=== PATIENT | male | born 1950 | race Caucasian/White ===

== ENCOUNTER → 2021-10-21 | Outpatient (CLI) | payer OTHER | LOC: SJCVC 10:47 | PROVIDERS: ATTEND Internal Medicine Cardiovascular Disease | DX: R94.31 Abnormal electrocardiogram [ECG] [EKG] (principal); I10 Essential (primary) hypertension; I48.91 Unspecified atrial fibrillation; E78.00 Pure hypercholesterolemia, unspecified; E78.5 Hyperlipidemia, unspecified; I25.10 Atherosclerotic heart disease of native coronary artery without angina pectoris; G47.30 Sleep apnea, unspecified; Z88.8 Allergy status to other drugs, medicaments and biological substances; Z87.891 Personal history of nicotine dependence ==

== ENCOUNTER → 2021-10-31 | Outpatient (CLI) | payer OTHER ==
[~2021-10-31] MED LIST: ADULT LOW DOSE81 MG PO; ASA81BEC; EFFIENT10 MG PO; TOPROL XL50 MG; XARELTO20 MG
== END ==
LOC: SJCVCIMAG 07:14
PROVIDERS: ATTEND Internal Medicine Cardiovascular Disease
DX: I34.0 Nonrheumatic mitral (valve) insufficiency (principal); I25.9 Chronic ischemic heart disease, unspecified; I49.3 Ventricular premature depolarization; R53.83 Other fatigue; R06.00 Dyspnea, unspecified; I25.10 Atherosclerotic heart disease of native coronary artery without angina pectoris; R07.9 Chest pain, unspecified; I48.91 Unspecified atrial fibrillation; I10 Essential (primary) hypertension; E78.00 Pure hypercholesterolemia, unspecified; G47.00 Insomnia, unspecified; E78.5 Hyperlipidemia, unspecified; Z87.891 Personal history of nicotine dependence; Z79.82 Long term (current) use of aspirin; Z79.899 Other long term (current) drug therapy; Z88.8 Allergy status to other drugs, medicaments and biological substances

== ENCOUNTER 2021-11-04 12:22 | Observation (INO) | payer OTHER ==
[2021-11-04] VITALS (10 sets, daily range): BP systolic 102–170; BP diastolic 77–102
[~2021-11-04] VITALS: Ht 182.9 cm; Wt 117.9 kg
[2021-11-04] MEDS ORDERED: ASA81BEC (13:17)
[2021-11-04] MEDS ORDERED: XARELTO20 MG (13:18)
[2021-11-04] MEDS ORDERED: TOPROL XL50 MG (13:19)
--- NOTE | 2021-11-04 16:35 | CATHLAB ---
[facility] [place] [address] INVASIVE PROCEDURE REPORT Name: ERNA FAIRCHILD Room #: 209-P [facility] [place] Asif#: [id number] Admission: 11/04/21 Attend Phys: Ricco Young MD Discharge: Date of : 54 Report #: [id number] THIS REPORT FOR: cc: Jose A Villanueva MD, Gary A. MD Park, Jin S. MD ~ APPROVED REPORT Study performed: 11/04/2021 14:26:07 Patient Details Patient Status: Out-Patient Room #: The patient is a 71 year-old male Event Personnel Ricco Young Landscape Crew Leader, Romain Mathews RN RN, Olesya Fairchild RTR ScrubMelissa Ja'net RTR Monitor Procedures Performed Art Access - R femoral artery* Left Heart Cath w/or w/o Coronaries [id number] [facility] JUANC[address]LOS Place w/wo Plasty Single LAD 204882 94911 Initial Mod Sed Same Phys/QHP Gr5y 223659 97321 Mod Sed Same Phys/QHP Ea 833286 Indication Atrial fibrillation, Dyspnea, Unstable angina , CardiomyopathyPositive stress test, Chest pain Risk Factors HypercholesterolemiaPhysical Activity, Coronary Artery DiseaseHypertension Previous Procedures/Diagnoses Previous PCI Procedure Narrative The patient was brought electively to the Cardiac Catheterization Laboratory and was prepped and draped in a sterile manner. The Right Groin^ was infiltrated with 1% Lidocaine subcutaneous anesthesia. A PINNACLE 4FR Sheath #[id number] sheath was inserted into the RFA^. Coronary angiography was performed using coronary diagnostic catheters. The right coronary system was accessed and visualized with a JR4 catheter. The left coronary system was accessed and visualized with a JL4 catheter. Closure device was deployed with a Fr MYNXGRIP [facility] [place] [address] [place] [address] INVASIVE PROCEDURE REPORT Name: ERNA FAIRCHILD Room #: 209-P [facility] IN [facility].#: [id number] Admission: 11/04/21 Attend Phys: Ricco Young MD Discharge: Date of : 54 Report #: [id number] 6/7F #[id number]. The patient tolerated the procedure well and there were no complications associated with the procedure. There was no hematoma. Intraoperative Conscious Sedation Sedation start time: 14:30 Case end Time: Fentanyl 50 mcg Versed 1 mg Fluoro Time: 8.90 minutes Dose: DAP 14453.40 cGycm2 3038 mGy Contrast Type and Amount: Omnipaque 150 ml Coronary Angiography The patient's coronary anatomy is right dominant. Diagnostic Cath Left Main The left main artery is a large-caliber vessel with mild disease distally. LAD The LAD is a moderate-sized caliber vessel, tapers down to a small to moderate-sized caliber in the mid and distal segments. There is a severe stenosis in the proximal segment, greater than 95%. There is mild to moderate diffuse disease in the midsegment, 30 to 40%. Diagonal 1 This is a small caliber vessel, with no flow-limiting lesions. Diagonal 2 This is a small caliber vessel, with no flow-limiting lesions. Circumflex There is a stent in the proximal segment of the left circumflex artery with severe restenosis, 80%. There lesions are at the proximal end of the stent and in the mid segment of the stent. OM1 This is a small to moderate-sized caliber vessel, patent with no flow-limiting lesions. OM2 There is a moderate-sized caliber vessel, with a severe stenosis in the proximal segment, 70%. Right Coronary The RCA is a dominant vessel with mild diffuse disease in the midsegment, 30%. R PDA This is a moderate-sized caliber vessel, patent with no flow-limiting lesions. RPLV This is a moderate-sized caliber vessel, patent with no flow-limiting lesions. Left Ventriculography Left Ventriculography was not performed. Ejection Fraction was 50-55% based off patient's Nuclear Cardiac Stress Test. [address] [address] INVASIVE PROCEDURE REPORT Name: ERNA FAIRCHILD Room #: 209-P [facility] IN M.R.#: [id number] Admission: 11/04/21 Attend Phys: Ricco Young MD Discharge: Date of : 54 Report #: [id number] Hemodynamics The aortic pressure is 151/89 mmHg with a mean of 111 mmHg. PCI Technique Lesion Anticoagulation was achieved with Angiomax. Percutaneous coronary intervention was performed on the proximal left anterior descending artery segment. The lesion stenosis prior to intervention was 95% with JULITA 3 flow. A VISTA 6FR XB 3.5 #[id number] Guide Catheter was used to engage the LAD ostium. A Luge Wire .014 x 182CM #[id number] Interventional Guidewire was used to cross the lesion. BALLOON DILATION A Balloon catheter Euphora RX 2.25 x 15 #[id number] was inserted and inflated up to 6.00atm for 6seconds. Additional Inflation: 8.00atm for 8seconds. Additional Inflation: 8.00atm for 12seconds. STENT DEPLOYMENT A stent RESOLUTE LAN RX 2.75 X 18 #[id number] was inserted and inflated up to 14.00atm for 21seconds. POST STENT DEPLOYMENT BALLOON DILATION A Balloon catheter Euphora NC RX 3.0 x 12 #[id number] was inserted and inflated up to 16.00atm for 15seconds. Additional Inflation: 16.00atm for 12seconds. Final angiography reveals 0 % stenosis with JULITA 3 flow. Conclusion 1. PCI performed with balloon angioplasty and placement of a drug-eluting stent into the severe proximal LAD stenosis. 2. Severe restenosis in the left circumflex stent, recommend staged PCI involving laser atherectomy. 3. The RCA is a dominant vessel, with mild disease. 4. Lownormal LV systolic function. 5. Recommend antiplatelet therapy and guideline directed medical therapy. <ELECTRONICALLY SIGNED> By: Ricco Young MD 11/04/21 1634 1634 1634 Ricco Young MD /INF
[2021-11-04] MEDS ORDERED: ADULT LOW DOSE81 MG PO (16:36)
[2021-11-04] MEDS ORDERED: EFFIENT10 MG PO (16:36)
--- NOTE | 2021-11-04 16:54 | NUR ---
Received pt to room 209 post cardiac cath around 1345. Pt is A&O x4, on RA, Afib on the monitor. Admission assessment performed & as documented. Forms signed & posted in chart. Pt on bedrest until 183. Rt grn site w/ mynx dressing which is C/D/I, no hematoma. Fall education performed & low fall precautions in place. Pt reports he cannot have dairy or gluten, diet adjusted to reflect. Call light within reach.
[2021-11-05 03:17] LABS: HEMATOCRIT 41.6 % (42.0-52.0); HEMOGLOBIN 14.4 gm/dL (14.0-18.0); MCH 30.5 pg (26.0-34.0); MCHC 34.5 g/dL (28.0-37.0); MCV 88.2 fL (80.0-100.0); RBC 4.72 mil/uL (4.50-6.00); RDW 13.9 % (10.5-14.5); WBC 7.4 thou/uL (4.0-11.0)
[2021-11-05 04:08] LABS: ALBUMIN 3.3 g/dL (3.4-5.0); CALCIUM 8.1 mg/dL (8.5-10.1); POTASSIUM 3.8 mmol/L (3.5-5.1); TOTAL BILIRUBIN 0.6 mg/dL (0.2-1.0); TOTAL PROTEIN 6.2 g/dL (6.4-8.2)
[2021-11-05 04:45] VITALS: BP 110/61
--- NOTE | 2021-11-05 04:57 | NUR ---
PATIENT AAOX3. R GROIN SITE CDI. NO SWELLING OR BRUISING NOTED. DENIES PAIN OR NEEDS. HAD DIFFICULTY SLEEPING DUE TO THE AMOUNT OF NOISE OUTSIDE OF HIS ROOM. PATIENT REMAINS AFIB ON THE MONITOR. WHEN HE SLEEPS HR DROPS TO THE LOW 40'S BUT DOES NOT SUSTAIN. ALL VSS. IS AMBULATING WITH NO ISSUES. ALL SAFETY PRECAUTIONS ARE IN PLACE. WILL CONTINUE TO MONITOR FOR CHANGES IN STATUS.
[2021-11-05 07:00] VITALS: BP 126/78
--- NOTE | 2021-11-05 07:45 | EKG ---
[address] [address] ELECTROCARDIOGRAM REPORT Name: ERNA FAIRCHILD Room #: 209-P [facility] M.R.#: [id number] Admission: 11/04/21 Attend Phys: Ricco Young MD Discharge: Date of : 54 Report #: [id number] [facility] Test Date: 2021-11-04 Test Time: 17:26:23 Pat Name: ERNA FAIRCHILD Department: Room: 209 P Gender: M Video Machines Mechanic: REI : 1950 Requested By: Ricco Young Order Number: [id number] MD: Kyle Bryant Measurements Intervals [place] Rate: 55 P: SD: QRS: 62 QRSD: 110 T: 61 QT: 382 QTc: 366 Interpretive Statements Atrial fibrillation Poor R wave progression No previous ECG available for comparison Electronically Signed On 11-05-2021 7:44:53 DIRECTOR OF RETENTION by Kyle Bryant [email or web address] <ELECTRONICALLY SIGNED> By: Kyle Bryant MD, [facility] 11/05/21 0744 1726 1726 Kyle Bryant MD, FACC /EPI
--- NOTE | 2021-11-05 07:53 | EKG ---
[address] [address] ELECTROCARDIOGRAM REPORT Name: ERNA FAIRCHILD Room #: 209-P [facility] M.R.#: [id number] Admission: 11/04/21 Attend Phys: Ricco Young MD Discharge: Date of : 54 Report #: [id number] [facility] Test Date: 2021-11-05 Test Time: 07:11:41 Pat Name: ERNA FAIRCHILD Department: Room: 209 P Gender: M Glue Mill Operator: BRIGITTE : 1950 Requested By: Ricco Young Order Number: [id number] MD: Kyle Bryant Measurements Intervals [place] Rate: 51 P: DC: QRS: 76 QRSD: 102 T: 85 QT: 396 QTc: 365 Interpretive Statements Atrial fibrillation Nonspecific T abnormalities, anterior leads Compared to ECG 11/04/2021 17:26:23 T-wave abnormality now present Electronically Signed On 11-05-2021 7:53:40 MANAGER SCIENTIFIC by Kyle Bryant [email or web address] <ELECTRONICALLY SIGNED> By: Kyle Bryant MD, [facility] 11/05/21 0753 0711 0 Kyle Bryant MD, FACC /EPI
[2021-11-05 10:22] VITALS: BP 126/78
--- NOTE | 2021-11-05 10:49 | NUR ---
ASSUMED CARE OF PT THIS MORNING. PT A&OX4 AND COMMUNICATING NEEDS TO STAFF APPROPRIATELY. PT DENIED PAIN THROUGHOUT THE MORNING AND WAS FREQUENTLY REASSESSED. PT AMBULATING AND VOIDING INDEPENDENTLY. NO SKIN ISSUES. PT WILL DC TODAY. TELE MONITOR AND IV REMOVED. DC INSTRUCTIONS REVIEWED WITH PT. QUESTIONS INVITED AND ANSWERED. PT WAS SENT HOME TO THE CARE OF FAMILY WITH THEIR BELONGINGS AND DC INSTRUCTIONS.
== END 2021-11-05 12:22 | disposition home or self-care (01) ==
LOC: CATH 12:22 → 2N 15:55
PROVIDERS: ADMIT Internal Medicine Cardiovascular Disease; ATTEND Internal Medicine Cardiovascular Disease
DX: I25.110 Atherosclerotic heart disease of native coronary artery with unstable angina pectoris (principal); I48.91 Unspecified atrial fibrillation; I10 Essential (primary) hypertension; E78.5 Hyperlipidemia, unspecified; E78.00 Pure hypercholesterolemia, unspecified; J98.4 Other disorders of lung; I42.9 Cardiomyopathy, unspecified; E66.9 Obesity, unspecified; G47.33 Obstructive sleep apnea (adult) (pediatric); Z88.8 Allergy status to other drugs, medicaments and biological substances; Z98.890 Other specified postprocedural states

== ENCOUNTER → 2021-11-14 | Outpatient (CLI) | payer OTHER | LOC: SJCVC 12:52 | PROVIDERS: ATTEND Internal Medicine Cardiovascular Disease | DX: R94.31 Abnormal electrocardiogram [ECG] [EKG] (principal); I48.91 Unspecified atrial fibrillation; E78.00 Pure hypercholesterolemia, unspecified; I10 Essential (primary) hypertension; I25.10 Atherosclerotic heart disease of native coronary artery without angina pectoris; E78.5 Hyperlipidemia, unspecified; Z79.82 Long term (current) use of aspirin; Z79.899 Other long term (current) drug therapy; Z88.8 Allergy status to other drugs, medicaments and biological substances; Z87.891 Personal history of nicotine dependence ==

== ENCOUNTER 2021-11-25 07:13 | Observation (INO) | payer OTHER ==
[~2021-11-25] VITALS: Ht 182.9 cm; Wt 130.0 kg
[2021-11-25] MEDS ORDERED: PLAVIX 75 MG TA75 MG PO (07:42)
[2021-11-25 07:45] VITALS: BP 147/84
[2021-11-25 08:13] LABS: HEMATOCRIT 45.6 % (42.0-52.0); HEMOGLOBIN 15.7 gm/dL (14.0-18.0); MCH 30.2 pg (26.0-34.0); MCHC 34.4 g/dL (28.0-37.0); MCV 87.6 fL (80.0-100.0); RBC 5.21 mil/uL (4.50-6.00); RDW 13.8 % (10.5-14.5); WBC 7.2 thou/uL (4.0-11.0)
[2021-11-25 08:31] LABS: CALCIUM 9.2 mg/dL (8.5-10.1); POTASSIUM 3.8 mmol/L (3.5-5.1)
--- NOTE | 2021-11-25 12:17 | EKG ---
[address] [address] [facility] [place] [address] ELECTROCARDIOGRAM REPORT Name: ERNA FAIRCHILD [id number] Admission: 11/25/21 Attend Phys: Ricco Young MD Discharge: Date of : 54 Report #: [id number] [facility] Test Date: 2021-11-25 Test Time: 10:54:58 Pat Name: ERNA FAIRCHILD Department: Room: Gender: M Marketing Automation Analyst: : 1950 Requested By: Ricco Young Order Number: [id number] MD: Km Wood Measurements Intervals [place] Rate: 59 P: TN: QRS: 66 QRSD: 92 T: 47 QT: 384 QTc: 381 Interpretive Statements Atrial fibrillation Borderline low voltage, extremity leads Nonspecific ST-T wave changes Compared to ECG 11/05/2021 07:11:41 T-wave abnormality no longer present Electronically Signed On 11-25-2021 12:16:58 CONSTRUCTION SITE MANAGER by Km Wood [email or web address] <ELECTRONICALLY SIGNED> By: Km Wood MD 11/25/21 1216 1054 1054 Km Wood MD /MITESH
--- NOTE | 2021-11-25 12:36 | CATHLAB ---
[facility] [place] [address] INVASIVE PROCEDURE REPORT Name: ERNA FAIRCHILD Room #: REG BIMAL Jordan.#: [id number] Admission: 11/25/21 Attend Phys: Ricco Young MD Discharge: Date of : 54 Report #: [id number] THIS REPORT FOR: cc: Jose A Villanueva MD, Gary A. MD Park, Jin S. MD ~ APPROVED REPORT Study performed: 11/25/2021 08:28:30 Patient Details Patient Status: Out-Patient Room #: The patient is a 71 year-old male Event Personnel Ricco Young Retail Associate, Olesya Fairchild RTR Monitor, Cathy Hartmann Wright, Sarah RN RN, Obi Yeh RN sizing machine and drier operator Performed Art Access - R femoral artery* JUANCARLOS Place w/wo Plasty Single CIRC 828861 Atherectomy w/wo Plasty Sgl CIRC 4603587 ATHSINGLE Coronary Angiography Only 7387860 CORANG Hemostasis w/ Mynx 47398 Initial Mod Sed Same Phys/QHP Gr5y 158448 05491 Mod Sed Same Phys/QHP Ea 802966 Indication Atrial fibrillation, Dyspnea, Positive stress test, Chest pain, The patient had a recent cardiac catheterization, found to have two-vessel disease. He underwent PCI with stent placement to the proximal LAD stenosis. He now returns for staged PCI involving severe restenotic lesion in the proximal/mid left circumflex and a severe de leonard lesion in OM 2. Risk Factors HypercholesterolemiaPhysical Activity, Coronary Artery DiseaseHypertension Previous Procedures/Diagnoses Previous PCI Procedure Narrative The Right Groin^ was infiltrated with 1% Lidocaine subcutaneous anesthesia. A PINNACLE 6FR Sheath #[id number] sheath was inserted into [facility] [address] [place] [address] INVASIVE PROCEDURE REPORT Name: ERNA FAIRCHILD Room #: REG CL Naif#: [id number] Admission: 11/25/21 Attend Phys: Ricco Young MD Discharge: Date of : 54 Report #: [id number] the RFA^. Coronary angiography was performed using coronary diagnostic catheters. The left coronary system was accessed and visualized with a XB 3.5 catheter. Closure device was deployed with a Fr MYNXGRIP 6/7F #[id number]. The patient tolerated the procedure well and there were no complications associated with the procedure. There was no hematoma. Intraoperative Conscious Sedation Sedation start time: 8:43 Case end Time: 10:16 Fentanyl 150 mcg Versed 3 mg Fluoro Time: 28.50 minutes Dose: DAP 70038.90 cGycm2 4971 mGy Contrast Type and Amount: Omnipaque 225 ml Coronary Angiography The patient's coronary anatomy is right dominant. Hemodynamics The aortic pressure is 135/77 mmHg with a mean of 98 mmHg. PCI Technique Lesion Percutaneous coronary intervention was performed on the proximal/mid left circumflex artery segment. The lesion stenosis prior to intervention was 90% with JULITA 3 flow. A VISTA 6FR XB 3.5 #549492 Guide Catheter was used to engage the ostium. A Luge Wire .014 x 182CM #[id number] Interventional Guidewire was used to cross the lesion. BALLOON DILATION A Balloon catheter Euphora NC RX 2.5 x 15 #[id number] was inserted and inflated up to 16.00atm for 18seconds. Additional Inflation: 18.00atm for 20seconds. Additional Inflation: 10.00atm for 21seconds. A EUPHORA NC 3.0 x 15 was inserted and inflated up to 18 denise for 29 seconds. Additional Inflation: 18 denise for 29 seconds. Additional inflation: 18 denise for 30 seconds. STENT DEPLOYMENT A drug-eluting stent RESOLUTE LAN RX 3.0 X 18 #[id number] was inserted and inflated up to 18.00atm for 20seconds. POST STENT DEPLOYMENT BALLOON DILATION A Balloon catheter TREK NC RX 2.5 X 8 #[id number] was inserted and inflated up to 18atm for 21seconds. An NC EUPHORA 3.0 x 12 was inserted and inflated up to 14 denise for 9 seconds. Additional [facility] [address] [place] [address] INVASIVE PROCEDURE REPORT Name: ERNA FAIRCHILD Room #: REG CL Laya#: [id number] Admission: 11/25/21 Attend Phys: Ricco Young MD Discharge: Date of : 54 Report #: [id number] inflation: 18 denise for 14 seconds. Additional Inflation: 20 denise for 23 seconds. Final angiography reveals 0 % stenosis with JULITA 3 flow. COMMENTS Trying to get the laser catheter into the proximal stent area was unsuccessful. Even using a second lona wire was not successful. The proximal stented area was then dilated with a 2.5 mm and then a 3.0 mm noncompliant balloon. After this step, this allowed passage of the laser atherectomy catheter into the severe restenotic area. A 0.9 SPECTRANETICS CORONARY LASER atherectomy was used at 45/45 for the first pass. The in-stent passes were at 80/80. All other passes were at 60/50. This was followed by a 2.5 mm ANGIOSCULPT NASH cutting balloon was placed into the main body of the stent, inflated up to 18 denise. After this step, a 3.0 x 18 mm drug-eluting stent was placed and postdilated. PCI Technique Lesion 2 Percutaneous coronary intervention was performed on the second obtuse marginal branch segment. The lesion stenosis prior to intervention was 80% with JULITA 3 flow. Stent Deployment A drug-eluting stent RESOLUTE LAN RX 2.5 X 12 #[id number] was inserted and inflated up to 14atm for 16seconds. Post Stent Deployment Balloon Dilation A Balloon catheter TREK NC RX 2.5 X 8 #[id number] was inserted and inflated up to 18atm for 16seconds. Final angiography reveals 0 % stenosis with JULITA 3 flow. Comments A 0.9 SPECTRANETICS CORONARY LASER atherectomy was used at 60/50. After the severe lesion in the second OM was treated with a laser atherectomy run, a 2.5 mm drug-eluting stent was placed. PCI Technique Lesion 3 Percutaneous Coronary Intervention was performed on the second obtuse marginal branch segment. A VISTA 6FR XB 3.5 #796858 Guide Catheter was used to engage the ostium. A Luge Wire .014 x 182CM #[id number] Interventional Guidewire was used to cross the lesion. [facility] [place] [address] INVASIVE PROCEDURE REPORT Name: ERNA FAIRCHILD Room #: REG CL Laya#: [id number] Admission: 11/25/21 Attend Phys: Ricco Young MD Discharge: Date of : 54 Report #: [id number] Stent Deployment A drug-eluting stent RESOLUTE LAN RX 2.5 X 12 #[id number] was inserted and inflated up to 14.00atm for 27seconds. Conclusion 1. PCI performed with a 0.9 SPECTRANETICS CORONARY LASER atherectomy, 2.5 mm ANGIOSCULPT NASH cutting balloon and placement of a drug-eluting stent into the severe restenotic lesion in the proximal/mid left circumflex segment. 2. PCI performed with a 0.9 SPECTRANETICS CORONARY LASER atherectomy and placement of a drug-eluting stent into the severe de leonard lesion in the proximal segment of the second obtuse marginal artery. 3. Recommend dual antiplatelet therapy and aggressive risk factor management. <ELECTRONICALLY SIGNED> By: Ricco Young MD 11/25/21 1236 1236 1236 Ricco Young MD /INF
[2021-11-25 19:35] VITALS: BP 123/65
--- NOTE | 2021-11-26 03:33 | NUR ---
Assumed pt care at 1900. Pt is alert and orinted. No sign of distress noted. Right groin sign intact, no bruising or bleeing on site. Assessment completed and documented. No acute event noted during thr night. CIPAP on for sleep. Continue to monitor, no further needs at this time.
[2021-11-26 04:40] VITALS: BP 106/74
[2021-11-26 05:12] LABS: HEMATOCRIT 41.6 % (42.0-52.0); HEMOGLOBIN 14.4 gm/dL (14.0-18.0); MCH 30.3 pg (26.0-34.0); MCHC 34.5 g/dL (28.0-37.0); MCV 87.7 fL (80.0-100.0); RBC 4.75 mil/uL (4.50-6.00); RDW 13.8 % (10.5-14.5); WBC 7.4 thou/uL (4.0-11.0)
[2021-11-26 06:23] LABS: ALBUMIN 3.3 g/dL (3.4-5.0); CALCIUM 8.4 mg/dL (8.5-10.1); CREATININE 1.1 mg/dL (0.7-1.3); POTASSIUM 4.2 mmol/L (3.5-5.1); TOTAL BILIRUBIN 0.7 mg/dL (0.2-1.0); TOTAL PROTEIN 6.1 g/dL (6.4-8.2)
[2021-11-26 07:49] VITALS: BP 118/71
[2021-11-26 09:42] VITALS: BP 118/71
--- NOTE | 2021-11-26 09:48 | NUR ---
PT MEDICALLY STABLE TO DC. CM MET WITH PT THIS DAY. CM GAVE PT COUPON FOR XERALTO. PT REPORTS HE ALREADY TAKES XERALTO AND HAS PLENTY AT HOME. PT REPORTS HE HAS NO NEEDS. NO CM INTERVENTIONS INDICATED.
--- NOTE | 2021-11-26 09:57 | NUR ---
ASSUMED CARE OF PATIENT AT 0700. PATIENT A&OX4, ON RA, AFIB CONTROLLED ON TELE. NO C/O PAIN AT THIS TIME. RIGHT GROIN SITE IS CDI, SOFT, NO HEMATOMA NOTED. PATIENT TO DC HOME. TELE AND IV DC'D AND REMOVED. DC EDUCATION COMPLETED. PATIENT GATHERED BELONGINGS AND WAS WHEELED UT TO CAR BY STAFF. PATIENT PROGRESSED TOWARD POC.
--- NOTE | 2021-11-26 11:57 | EKG ---
[address] [address] ELECTROCARDIOGRAM REPORT Name: ERNA FAIRCHILD Room #: 205-P [facility]..#: [id number] Admission: 11/25/21 Attend Phys: Ricco Young MD Discharge: 11/26/21 Date of : 54 Report #: [id number] [facility] Test Date: 2021-11-26 Test Time: 08:14:49 Pat Name: ERNA FAIRCHILD Department: Room: [facility] Gender: M Category Planner: : 1950 Requested By: Ricco Young Order Number: [id number] : Nikita Peralta Measurements Intervals [place] Rate: 85 P: [place]: QRS: 58 QRSD: 90 T: 17 QT: 347 QTc: 413 Interpretive Statements Atrial fibrillation Low voltage, extremity leads Compared to ECG 11/25/2021 10:54:58 ST (T wave) deviation no longer present Electronically Signed On 11-26-2021 11:57:34 SPUN PASTE MACHINE OPERATOR by Nikita Peralta [email or web address] <ELECTRONICALLY SIGNED> By: Nikita Peralta MD, [facility] 11/26/21 1157 0814 3 Nikita Peralta MD, FACC /EPI
== END 2021-11-26 10:41 | disposition home or self-care (01) ==
LOC: CATH 07:13 → 2N 13:05 → CATH 13:06 → 2N 13:06 → CATH 13:29 → 2N 11-26 10:41
PROVIDERS: ADMIT Internal Medicine Cardiovascular Disease; ATTEND Internal Medicine Cardiovascular Disease
DX: I25.110 Atherosclerotic heart disease of native coronary artery with unstable angina pectoris (principal); I10 Essential (primary) hypertension; I48.20 Chronic atrial fibrillation, unspecified; G47.33 Obstructive sleep apnea (adult) (pediatric); Z79.82 Long term (current) use of aspirin; Z79.899 Other long term (current) drug therapy
CPT/HCPCS: 10797